=== PATIENT | female | born 1975 | race American Indian/Alaskan Native ===

== ENCOUNTER 2022-03-08 22:44 | Emergency (ER) | payer BC, MEDICAID, OTHER ==
[2022-03-08] MEDS ORDERED: Acetaminophen 325 MG Tab PO ONE (22:52)
[2022-03-08] MEDS ORDERED: Lidocaine 1% 10 ML MDV INJECT ONE (22:53)
[2022-03-08] MEDS ORDERED: Bacitracin Oint 1 GM U/D Packet TOP ONE (22:53)
[2022-03-08] MEDS ORDERED: Ketorolac 30 MG/ML SDV IVPUSH ONE (22:55)
[2022-03-08] MEDS ORDERED: Lidocaine 1% 5 ML VIAL ONE (23:06)
[2022-03-08] MEDS ORDERED: Mupirocin Oint 22 GM Tube TOP ONE (23:29)
[2022-03-08 23:36] LABS: ANION GAP 15.1 mEq/L (7-13)
[2022-03-09] MEDS ORDERED: Potassium Chloride 10 MEQ Tab.ER PO ONE (00:09)
[2022-03-09] MEDS ORDERED: Ondansetron 4 MG/2 ML SDV IVPUSH ONE (00:09)
[2022-03-09] MEDS ORDERED: Ondansetron 4 MG/2 ML SDV ONE (00:11)
[2022-03-09] MEDS ORDERED: Sodium Chloride 0.9% 1,000 ML IV ONE (00:25)
== END 2022-03-09 00:26 ==
LOC: DL.ED 22:44
DX: L03.114 Cellulitis of left upper limb (principal); F17.210 Nicotine dependence, cigarettes, uncomplicated; Z20.822 Contact with and (suspected) exposure to COVID-19
CPT/HCPCS: 10060; 36415; 73140; 80053; 83605; 85025; 86850; 86900; 86901; 87040; 87070; 87077; 87186; 87205; 87635; 96365; 96375; 99285; A9270; J1885; J2405; J3370; J7050; 99283; U0002